=== PATIENT | male | born 1975 | race Caucasian/White ===

== ENCOUNTER 2020-11-15 02:36 | Emergency (ER) | payer MEDICAID ==
[~2020-11-15] VITALS: Ht 182.9 cm; Wt 100.0 kg
--- NOTE | 2020-11-15 03:06 | NUR ---
PT SITTING UPRIGHT ON GURNEY, ABLE TO DOZE OFF. RESTING COMFORTABLY WITH EYES CLOSED. WARM BLANKET PROVIDED PER REQUEST. PT DENIES ANY ADDITIONAL NEEDS AT THIS TIME. CALL LIGHT AND PERSONAL BELONGINGS WITHIN REACH.
--- NOTE | 2020-11-15 04:05 | NUR ---
PT SUPINE ON GURNEY SLEEPING. NAD, VSS. PT HAS NO NEEDS AT THIS TIME. CALL LIGHT WITHIN REACH
--- NOTE | 2020-11-15 05:10 | NUR ---
PT SUPINE ON GURNEY. NAD, VSS. PT DIFFUCULT TO WAKE BUT RESPONDS APPROPRIATELY TO STAFF AND ABLE TO FOLLOW COMMONDS. PT RETURNS TO SLEEPING DURING CONVERSATION WITH STAFF. PT DENIES ANY NEEDS AT THIS TIME. CALL LIGHT AND PERSONAL BELONGINGS WITHIN REACH.
[2020-11-15 05:57] VITALS: BP_DIAS 62
--- NOTE | 2020-11-15 05:58 | NUR ---
PT SUPINE ON GURNEY. NAD, VSS. PT DIFFUCULT TO WAKE BUT RESPONDS APPROPRIATELY TO STAFF WHEN AWAKE AND ABLE TO FOLLOW COMMONDS. PT RETURNS TO SLEEPING DURING CONVERSATION WITH STAFF, SPEECH SLURRED. PT A&Ox2. PT DENIES ANY NEEDS AT THIS TIME. CALL LIGHT AND PERSONAL BELONGINGS WITHIN REACH.
--- NOTE | 2020-11-15 06:47 | NUR ---
BEDSIDE REPORT GIVEN TO SHAGGY TANNER
[2020-11-15 06:51] VITALS: BP_SYST 70
--- NOTE | 2020-11-15 06:53 | NUR ---
ASSUMED CARE. PT DROWSY, SLURRED SPEECH. SMELLS OF ALCOHOL. PT KNOWS HIS NAME BUT DISORIENTED TO SITUATION. ORIENTED PT TO WHERE HE IS AND HOW HE GOT HERE AND THE DATE. EXPLAINED TO PT THE ULTIMATE GOAL OF FINDING HIM A RIDE. BREATHING EVEN AND UNLABORED. WILL CONTINUE TO MONITOR WHILE PROVIDING PT TIME TO SOBER UP AND BE ABLE TO AMBULATE
--- NOTE | 2020-11-15 08:43 | NUR ---
AMBULATED TO BATHROOM WITH TECH AND THEN FROM ER WITHOUT ASSISTANCE. PT STATES HOMELESS BUT DOES NOT WANT TRANSPORTATION TO [facility].
--- NOTE | 2020-11-15 08:44 | NUR ---
PT ALERT TO PLACE AND PERSON AND ABLE TO CONVERSE WITH STAFF.
== END 2020-11-15 08:52 | disposition home or self-care (01) ==
LOC: ED 08:45
DX: F10.120 Alcohol abuse with intoxication, uncomplicated (principal); Z72.9 Problem related to lifestyle, unspecified; Y90.9 Presence of alcohol in blood, level not specified
CPT/HCPCS: 99285

== ENCOUNTER 2020-11-15 10:14 | Emergency (ER) | payer MEDICAID ==
[~2020-11-15] VITALS: Ht 182.9 cm; Wt 120.0 kg
--- NOTE | 2020-11-15 10:41 | NUR ---
pt biba for intoxication. pt discharged from this ED approx 1 hr ago for same. per EMS, pt was not ambulatory at scene, found curled on ground near a gas station, vodka bottle in hand. pt is awake, alert, not answering most questions. speech slurred, keeps stating "I'm sorry." pt follows commands, moves all extremities with equal strength. no midline neck tenderness/pain. pupils equal, round and reactive, 3 mm. pt attached to bp and spo2 monitor. bed locked and in lowest position. call light in reach. warm blankets provided. pt seen by FELA Capellan on arrival, no orders given.
--- NOTE | 2020-11-15 10:45 | NUR ---
room air spo2 89-91%, oxygen applied at 2L/min via NC. urinal at bedside.
--- NOTE | 2020-11-15 11:40 | NUR ---
report given at bedside to RN Edilia, pt sleeping on gurney, warm blankets in place. bp and spo2 monitors in place. spo2 99% on oxygen at 2L/min via NC. call light and urinal in reach.
--- NOTE | 2020-11-15 11:43 | NUR ---
BEDSIDE REPORT RECEIVED FROM FLORES STEWART FOR TRANSFER OF PATIENT CARE.
--- NOTE | 2020-11-15 12:36 | NUR ---
PATIENT SITTING AT EDGE OF BED TAKING BLOOD PRESSURE CUFF AND O2 SENSOR OFF. PATIENT STATES HE IS READY TO GO, CLEAN PANTS, UNDERWEAR AND SOCKS PROVIDED TO PATIENT.
[2020-11-15 13:42] VITALS: BP 149/72
--- NOTE | 2020-11-15 13:50 | NUR ---
Patient given discharge instructions and they have confirmed that they understand the instructions. Patient stable and ambulatory with steady gait from ED.
== END 2020-11-15 13:51 | disposition home or self-care (01) ==
LOC: ED 12:53
DX: F10.120 Alcohol abuse with intoxication, uncomplicated (principal); Y90.9 Presence of alcohol in blood, level not specified
CPT/HCPCS: 99283

== ENCOUNTER 2020-11-15 14:19 | Emergency (ER) | payer MEDICAID ==
--- NOTE | 2020-11-15 14:34 | NUR ---
Pt is resting, pt was found at the [place] station with vodka.
--- NOTE | 2020-11-15 14:43 | NUR ---
Patient states "you are the best ever". Covered with blankets. Plan of care discussed.
--- NOTE | 2020-11-15 15:13 | NUR ---
Patient resting with eyes closed, supine, even respiratory rate and effort.
--- NOTE | 2020-11-15 15:22 | NUR ---
Pt up to bathroom, ambulates with steady gait.
[2020-11-15 16:07] VITALS: BP 128/82
--- NOTE | 2020-11-15 16:08 | NUR ---
Pt discharged by w/c with this RN. Pt ambulates 20 feet with steady gait. Pt placed in taxi, alert, orientated and thankful.
== END 2020-11-15 16:12 | disposition home or self-care (01) ==
LOC: ED 15:30
DX: F10.229 Alcohol dependence with intoxication, unspecified (principal); Y90.9 Presence of alcohol in blood, level not specified
CPT/HCPCS: 99281

== ENCOUNTER 2020-11-16 23:24 | Emergency (ER) | payer MEDICAID ==
[~2020-11-16] VITALS: Ht 172.7 cm; Wt 100.0 kg
[2020-11-17 00:14] LABS: BASOPHILS % (AUTO) 1 % (0-1); EOSINOPHILS % (AUTO) 0 % (1-7); LYMPHOCYTES % (AUTO) 25 % (22-44); MEAN CORPUSCULAR HEMOGLOBIN 25.3 pg (27.5-34.5); MEAN CORPUSCULAR HGB CONC 32.9 g/dL (33.2-36.2); MEAN PLATELET VOLUME 7.6 fL (7.4-10.4); MONOCYTES % (AUTO) 10 % (2-9); NEUTROPHILS % (AUTO) 64 % (42-75); PLATELET COUNT 82 x10^3/uL (130-400); RED BLOOD COUNT 4.07 x10^6/uL (4.38-5.82); RED CELL DISTRIBUTION WIDTH 17.3 % (9.4-14.8)
[2020-11-17 00:22] LABS: ALBUMIN 3.8 g/dL (3.4-5.0); ANION GAP 10 mmol/L (5-15); CALCIUM 8.5 mg/dL (8.5-10.1); CHLORIDE 107 mmol/L (98-107)
[2020-11-17 00:25] LABS: ALANINE AMINOTRANSFERASE 67 U/L (12-78); ALKALINE PHOSPHATASE 174 U/L (45-117); BILIRUBIN,TOTAL 2.1 mg/dL (0.2-1.0); CREATININE 0.78 mg/dL (0.7-1.3); TOTAL PROTEIN 7.8 g/dL (6.4-8.2)
[2020-11-17 00:45] LABS: MD SCAN
--- NOTE | 2020-11-17 01:00 | NUR ---
PT SITTING UPRIGHT ON GURNEY, RESTING COMFORTABLY WITH EYES CLOSED. PT O2 NOTED TO BE 86% ON ROOM AIR WHILE SLEEPING, PT PLACED ON 2L O2 VIA NASAL CANNULA, O2 SAT AT 96%, TOLERATING WELL. PT DENIES ANY NEEDS AT THIS TIME. WILL CONTINUE TO MONITOR.
--- NOTE | 2020-11-17 01:21 | NUR ---
TASK RN: PT RESTING ON GURNEY EYES CLOSED RESP EVEN AND UNLABORED NO NEEDS AT THIS TIME, PT REMAINS CONNECTED TO MONITORING VSS. AWAITING SOBRIETY FOR DC
--- NOTE | 2020-11-17 03:00 | NUR ---
PT SITTING UPRIGHT ON GURNEY, RESTING COMFORTABLY WITH EYES CLOSED. PT UNABLE TO AMBULATE AT THIS TIME. DENIES ANY NEEDS AT THIS TIME. WILL CONTINUE TO MONITOR.
[2020-11-17 05:03] VITALS: BP_DIAS 59
--- NOTE | 2020-11-17 05:04 | NUR ---
PT SUPINE ON GURNEY, RESTING COMFORTABLY WITH EYES CLOSED. PT REFUSING TO GET OUT OF BED TO AMBULATE, "I AM WAY TO DRUNK STILL, NO WALKING FROM ME YET". PT CONTINUES TO HAVE SLURRED SPEECH BUT NOW A&OX4. PT STATES HE MOVED TO THE AREA FROM [place] RECENTLY, "MY DOCTOR TOLD ME I NEEDED TO MOVE SO I MOVED HERE, IM HOMELESS, I DONT HAVE A HOME. I HAVE AN AUNT THAT LIVES IN THE [place] THOUGH". PT DENIES ANY NEEDS AT THIS TIME. CALL LIGHT AND BELONGINGS IN REACH. PT LINENS CHANGED DUE TO EPISODE OF URINE INCONTINENCE. PT COOPERATIVE WITH STAFF AND FOLLOWS COMMANDS APPROPRIATELY.
--- NOTE | 2020-11-17 06:00 | NUR ---
PT AMBULATED WITH STEADY GAIT, AWAITING D/C.
[2020-11-17 06:14] VITALS: BP_SYST 112
--- NOTE | 2020-11-17 06:14 | NUR ---
Patient given discharge instructions and they have confirmed that they understand the instructions. Patient ambulatory with steady gait to [facility]. Pt provided clean pair of pants.
== END 2020-11-17 06:16 | disposition home or self-care (01) ==
LOC: ED 23:58
DX: F10.220 Alcohol dependence with intoxication, uncomplicated (principal); R10.13 Epigastric pain; R94.5 Abnormal results of liver function studies; Y90.0 Blood alcohol level of less than 20 mg/100 ml
CPT/HCPCS: 36415; 80053; 83690; 85025; 99285

== ENCOUNTER 2021-01-20 17:57 | Emergency (ER) | payer MEDICAID ==
[~2021-01-20] VITALS: Ht 175.3 cm; Wt 105.0 kg
--- NOTE | 2021-01-20 18:17 | NUR ---
PT BIBA C/O DECREASED RESPONSIVENESS AND SLURRING OF WORDS X1 HR PER EMS (REPORTED AX0X4 1 HR PRIOR TO SECOND CALL TO PT). + ETOH ODOR WITH URINARY INCONTINENCE. PT UNABLE TO PARTICIPATE IN ASSESSMENT OR ANSWER STAFF QUESTIONS. VSS BUT UNABLE TO TAKE TEMP AT THIS TIME PT IS UNCOOPERATIVE. WET CLOTHING REMOVED, MONITORS IN PLACE. COMFORT MEASURES PROVIDED. CALL LIGHT WITHIN REACH, HOB ELEVATED.
--- NOTE | 2021-01-20 18:48 | NUR ---
REPORT GIVEN TO AURY
--- NOTE | 2021-01-20 18:55 | NUR ---
PATIENT RESTING IN BED IN NAD WITH VS STABLE ON 2L VIA NC. CALL SERNA IN REACH. BED RAILS UP FOR SAFETY. URINAL PLACED AT BEDSIDE. WILL CONTINUE TO MONITOR.
--- NOTE | 2021-01-20 20:00 | NUR ---
PATIENT RESTING IN BED IN NAD. CALL SERNA IN REACH. SAFETY MAINTAINED. WILL CONTINUE TO MONITOR.
--- NOTE | 2021-01-20 21:00 | NUR ---
PATIENT CHANGING POSITION IN BED INDEPENDENTLY. PATIENT DOES NOT AWAKEN TO VOICE BUT TO REPEATITIVE MOVEMENT. CALL SERNA IN REACH. BED RAILS REMAIN UP IN PLACE FOR SAFETY. WILL CONTINUE TO MONITOR.
--- NOTE | 2021-01-20 22:00 | NUR ---
NC TITRATED DOWN. WILL CONTINUE TO MONITOR. WILL RE-EVAL BREATHALYZER SOON.
--- NOTE | 2021-01-20 22:55 | NUR ---
PATIENT FOUND TO BE AT 55% ON2L VIA NC. PATIENT RESTING IN BED WITH EYES CLOSED BEATRICE CORNERED IN BED, PATIENT KEEPS REPOSITIONING SELF IN THIS POSITION. PATIENT REPOSITIONED AND NC INCREASED TO 6L. PATIENT ALERT TO VOICE. PUPILS DILATED. WILL CONTINUE TO MONITOR.
--- NOTE | 2021-01-20 23:00 | NUR ---
REBREATHALYZED AND NOW 0.358. PATIENT HAS MUMBLED SPEECH. A&OX1. CALL SERNA IN REACH. SAFETY MAINTAINED. PATIENT DENIES NEED TO USE URINAL AT THIS TIME.
--- NOTE | 2021-01-20 23:58 | NUR ---
PATIENT AWAKE AND ASKING FOR CLOTHES. I WAS TOLD IN HANDOFF REPORT THAT PATIENT CAME IN DRESSED IN URINE SOAKED CLOTHING SO THESE WERE REMOVED AND ARE ON FLOOR IN PATIENT'S ROOM. WILL SEARCH FOR CLOTHING. VS REMAIN STABLE ON RA AT THIS TIME PATIENT REMOVED NC FROM NARES
--- NOTE | 2021-01-21 00:07 | NUR ---
REPORT GIVEN TO PAUL FOR LUNCH RELIEF
--- NOTE | 2021-01-21 00:33 | NUR ---
break rn tried walking pt, pt placed in gown, pt refused to get up and said that he is to drunk and he knows he will fall if he tries to walk.
--- NOTE | 2021-01-21 00:55 | NUR ---
patient continues to have clear speech. patient up for ambulation trial and steady with ambulation. slow at times to move but A&Ox4. ready for discharge. patient provided with all new clothing from clothing closet, and gloves. patient able to dress himself
--- NOTE | 2021-01-21 01:09 | NUR ---
discharge instructions reviewed with patient. no further questions. patient dressed himself. ambulation to lobby steady. clear speech. no IV placed during this ER visit. all personal belongings with patient on discharge. resource handouts provided to patient for nursing home, psych facilities and addiction treatment. these were reviewed
[2021-01-21 01:12] VITALS: BP 120/61
== END 2021-01-21 01:14 | disposition home or self-care (01) ==
LOC: MERGE 23:26 → ED 23:26
DX: G92 Toxic encephalopathy (principal); F10.220 Alcohol dependence with intoxication, uncomplicated; R41.82 Altered mental status, unspecified; Y90.0 Blood alcohol level of less than 20 mg/100 ml
CPT/HCPCS: 99285

== ENCOUNTER 2021-01-21 05:57 | Emergency (ER) | payer MEDICAID ==
[~2021-01-21] VITALS: Ht 177.8 cm; Wt 105.0 kg
--- NOTE | 2021-01-21 06:14 | NUR ---
pt was found by bystanderd sleeping in [employer] [place]. pt arived to er via [facility] ground. pt smells of urin and etoh with pt slurring words and admiting to drinking. pt placed in bed, pt on monitor with pt vss.
--- NOTE | 2021-01-21 07:22 | NUR ---
Pt sleeping, visible chest rise and fall. Connected to BP and O2 monitors.
--- NOTE | 2021-01-21 08:46 | NUR ---
Pt awake intermittently, slurring words.
[2021-01-21 08:47] VITALS: BP 126/60
--- NOTE | 2021-01-21 11:45 | NUR ---
Pt had soiled pants with urine, provided with new underwear and pants.
== END 2021-01-21 11:46 | disposition home or self-care (01) ==
LOC: ED 06:45
DX: F10.120 Alcohol abuse with intoxication, uncomplicated (principal); R41.82 Altered mental status, unspecified; Y90.0 Blood alcohol level of less than 20 mg/100 ml
CPT/HCPCS: 99283

== ENCOUNTER 2021-01-21 15:09 | Emergency (ER) | payer MEDICAID ==
[~2021-01-21] VITALS: Ht 172.7 cm; Wt 80.0 kg
--- NOTE | 2021-01-21 15:32 | NUR ---
BREAK RN: PT RESTING ON [employer] W/ CALL LIGHT IN REACH AND SIDE RAILS UPX2. CONNECTED TO ALL MONITORING. CONNECTED TO 2L NC FOR SAFETY, VSS, NADN.
--- NOTE | 2021-01-21 16:06 | NUR ---
BREAK RN: PT SLEEPING ON GURNEY, CONNECTED TO ALL MONITORING, SALLY THOMPSON.
--- NOTE | 2021-01-21 16:19 | NUR ---
Paula tenorio in [facility] - 01/21/21 at 1620 by [email or web address] PT IN BED RESTING.
--- NOTE | 2021-01-21 18:43 | NUR ---
report received from Zahra TANNER. I assume care of this patient at this time. last night on night order selector, patient d/c'd and told me when he was leaving "ill be back later tonight". patient back again before shift ended and patient back now as well for same
--- NOTE | 2021-01-21 18:47 | NUR ---
Late entry summary note: Pt immediately undressed by this RN and provided with gown, on chucks. Pt connected to all monitors and HOB upright to protect pt's airway. Pt responds by opening eyes when chest is tapped and his name is yelled. Pt has been sleeping with visible chest rise and fall throughout time in ER.
--- NOTE | 2021-01-21 18:50 | NUR ---
Report to FLORES Manzano.
--- NOTE | 2021-01-21 19:32 | NUR ---
PATIENT IN BED WITH BED RAILS UP FOR SAFETY, hob REMAINS ELEVATED TO PROTECT AIRWAY. vs REMAIN STABLE ON 1L VIA NC. WILL CONTINUE TO MONITOR.
--- NOTE | 2021-01-21 20:21 | NUR ---
patient inappropriately touching himself while resting in bed. noticeable wet spot on gown near this area. patient instructed to stop this behavior. urinal remains at bedside. patient arousable to voice. continues to have slurred speech. VS remain stable on 2L via NC. this was increased due to patient's position in bed and decrease in O2 sat to 90%. will continue to monitor.
--- NOTE | 2021-01-21 21:11 | NUR ---
PATIENT AROUSABLE TO VOICE. PATIENT CONTINUES TO SLURR WORDS DURING CONVERSATION. EDUCATION ON ALCOHOL ABUSE AND EFFECTS IT HAS ON THE BODY REVIEWED WITH PATIENT. PATIENT ACKNOWLEDGES EDUCATION. SAFETY MAINTAINED. WILL CONTINUE TO MONITOR.
--- NOTE | 2021-01-21 22:08 | NUR ---
PATIENT RESTING INBED. IN NAD. SAFETY MAINTAINED. WILL CONTINUE TO MONITOR.
--- NOTE | 2021-01-21 23:36 | NUR ---
PATIENT YELLING OUT FOR NURSE. NURSE TO BEDSIDE. PATIENT AWAKE BUT SLIGHTLY DROWSY BUT CONTINUING CONVERSATION. I ASKED PATIENT IF HE THINKS HE WOULD BE ABLE TO AMBULATE AND PATIENT BECAME HOSTILE. "YEAH. I CAN DO THAT SINCE YOURE KICKING ME OUT. PATIENT HAS STEADY GAIT IN ROOM. AT TIMES DOES USE WALL FOR BALANCE. PATIENT ABLE TO BEND OVER AND RETRIEVE HIS CLOTHING FROM THE FLOOR. PATIENT THEN PROCEEDS TO MAKE HOSTILE REMARKS TO NURSE "IM NOT GOING TO CHANGE IN FRONT OF YOU. THATS GROSS." WHEN RN ASKED IF WE COULD DO FURTHER AMBULATION TRIAL OUT IN HALLWAY. PATIENT THEN HELD HIS CLOTHES AND WALKED TO BATHROOM WITH STEADY GAIT. HE THEN STATED "YEAH. THANKS FOR GIVING ME A LITTLE BIT OF PRIVACY" RN ASKED IF HE NEEDED ANY HELP IN THE BATHROOM GETTING DRESSED AND PATIENT DECLINED AND PATIENT REFUSED TO GET DRESSED IN THE ER ROOM HE HAS BEEN IN. TOLERATED RA WHILE ASLEEP AND AWAKE. PATIENT STATES TO ME "I WILL BE BACK TONIGHT". WILL CONTINUE TO MONITOR FOR SAFETY UNTIL DISCHARGE. PATIENT ORIENTED X4 AT THIS TIME.
--- NOTE | 2021-01-21 23:50 | NUR ---
PATIENT UP TO BATHROOM AND REFUSING TO COME OUT. PATIENT'S SHIRT STILL IN ROOM SO I PLACED THIS ON A CHAIR OUTSIDE BATHROOM. PATIENT NOTIFIED IT WAS THERE AND I SAW SOME SMALL THINGS MOVING ON HIS SHIRTS. WHEN I LOOKED CLOSER, THERE WERE ~ 20 SMALL MAI/BROWN BUGS CRAWLING ALL OVER PATIENT'S SHIRT. AUTO RENTAL SUPERVISOR NOTIFIED AND DR. MUHAMMAD TO IDENTIFY THESE BUGS. POSSIBLY LICE/BEDBUGS ON FIRST ASSESSMENT. ONE PLACED IN SPECIMEN CUP AND SECURITY CALLED TO ESCORT PATIENT OUT WITH HIS BELONGINGS. RN TO [place]. PATIENT STEADY GAIT TO AMBULANCE BAY.
[2021-01-22 00:17] VITALS: BP 135/79
== END 2021-01-22 00:20 | disposition home or self-care (01) ==
LOC: ED 18:14
DX: F10.129 Alcohol abuse with intoxication, unspecified (principal); F10.120 Alcohol abuse with intoxication, uncomplicated; Y90.0 Blood alcohol level of less than 20 mg/100 ml
CPT/HCPCS: 99285

== ENCOUNTER 2021-02-03 19:01 | Emergency (ER) | payer MEDICAID ==
[~2021-02-03] VITALS: Ht 172.7 cm; Wt 113.6 kg
--- NOTE | 2021-02-03 19:05 | NUR ---
PT BIB [facility], FOUND LYING DOWN ON [address]RE[address] AT [address], INTOXICATED, UNABLE TO AMBULATE. VSS PER EMS, BS 125. ALERT BUT CONFUSED, MAKING OBSCENE COMMENTS. PER EMS, PT HAD ALREADY BEEN TO ED 3X THIS WEEK FOR SAME COMPLAINT.
[2021-02-03 19:06] VITALS: BP 98/36
--- NOTE | 2021-02-03 19:47 | NUR ---
PT SWEARING AND BEING INAPPROPRIATE TO STAFF AND PROVIDER. NO URGENT MEDICAL COMPLAINTS. SECURITY TO ESCORT PT OUT OF ED VIA WC. PT UNABLE TO GIVE HOME ADDRESS, STATES, "I LIVE IN THE TENT!" CAB VOUCHER PROVIDED TO PT TO [facility].
== END 2021-02-03 19:49 | disposition home or self-care (01) ==
LOC: ED 19:43
DX: F10.220 Alcohol dependence with intoxication, uncomplicated (principal); F17.210 Nicotine dependence, cigarettes, uncomplicated; Z72.9 Problem related to lifestyle, unspecified; Y90.0 Blood alcohol level of less than 20 mg/100 ml
CPT/HCPCS: 99283

== ENCOUNTER 2021-02-09 20:34 | Emergency (ER) | payer MEDICAID ==
[~2021-02-09] VITALS: Ht 182.9 cm; Wt 100.0 kg
--- NOTE | 2021-02-09 20:58 | NUR ---
RAMAKRISHNA AFTER BEING FOUND AT A [facility] FOR ETOH. PT HAS DC PAPERWORK FROM [employer]. 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 PT GAVE VERBAL CONSENT FOR REQUEST FROM [facility]. PT VERY INTOXICATED, SLURRING WORDS AND NOT FOLLOWING COMMANDS. LICE EGGS FOUND IN HAIR.
--- NOTE | 2021-02-09 22:55 | NUR ---
PT SLEEPING, AWAKENS EASILY, STILL SLURRING WORDS. NO NEEDS AT THIS TIME. CONDOM CATH PLACED.
--- NOTE | 2021-02-10 | NUR ---
PT SLEEPING, RESP EVEN AND UNLABORED. PT ON 2 L NC FOR SPO2 OF 80% RA
--- NOTE | 2021-02-10 01:18 | NUR ---
PT SLEEPING, REPSP EVEN AND UNLABORED.
[2021-02-10 02:00] VITALS: BP 119/64
--- NOTE | 2021-02-10 02:14 | NUR ---
pt awakens easily to verbal stimuli, slurring still present but improving, pt talking about it being his birthday, falls asleep mid conversation.
--- NOTE | 2021-02-10 02:22 | NUR ---
PT FULLY AWAKE AND 95% RA.
--- NOTE | 2021-02-10 02:34 | NUR ---
PT AWAKENS VERY EASILY, SLURRING GONE. PT SPEAKING FULL SENTENCES AND STATING " I KNOW I HAVE TO LEAVE BUT I DONT WANT TO LEAVE WITH THE OUTSIDE RIGGER".
--- NOTE | 2021-02-10 02:35 | NUR ---
PT ABLE TO DRESS HIM SELF AND AMBULATES WITH STEADY GAIT. AFTER GETTING DRESSED PT LAID IN GURNEY AND REFUSED TO GET UP. 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 PT EDUCTAED ON DC AND REMINDED HOW MINUTES BEFORE PT WAS COOPRATIVE WITH DC. PT ESCORTED TO DC DESK.
== END 2021-02-10 02:40 | disposition home or self-care (01) ==
LOC: ED 23:02
DX: F10.220 Alcohol dependence with intoxication, uncomplicated (principal); Y90.0 Blood alcohol level of less than 20 mg/100 ml
CPT/HCPCS: 99285